=== PATIENT | female | born 1965 | race Caucasian/White ===

== ENCOUNTER 2017-07-21 14:28 | Emergency (ER) | payer MEDICAID ==
[~2017-07-21] VITALS: Ht 157.5 cm; Wt 59.8 kg
[~2017-07-21 14:28] MED LIST: GABA300C PO; HYDR-565 PO; SUCR1TAB PO
[2017-07-21 14:47] VITALS: BP 135/78
[2017-07-21] MEDS ORDERED: METH4TAB81 PO (15:41)
== END 2017-07-21 16:01 | disposition home or self-care (01) ==
LOC: ER 14:28
DX: G56.03 Carpal tunnel syndrome, bilateral upper limbs (principal); G89.29 Other chronic pain; M19.90 Unspecified osteoarthritis, unspecified site; Z88.8 Allergy status to other drugs, medicaments and biological substances; Z79.899 Other long term (current) drug therapy
CPT/HCPCS: 99283

== ENCOUNTER 2018-04-10 09:31 | Day surgery (SDC) | payer MEDICAID ==
[2018-04-03 10:42] LABS: BASOPHILS # (AUTO) 0.1 X10'3 (0-0.2); BASOPHILS % (AUTO) 1.3 % (0-1); EOSINOPHILS # (AUTO) 0.2 X10'3 (0-0.9); EOSINOPHILS % (AUTO) 3.3 % (0-6); LYMPHOCYTES # (AUTO) 2.6 X10'3 (1.1-4.8); LYMPHOCYTES % (AUTO) 36.3 % (21-51); MEAN CORPUSCULAR HEMOGLOBIN 30.8 PG (27.0-31.0); MEAN CORPUSCULAR HGB CONC 34.1 g/dL (33.0-36.5); MEAN CORPUSCULAR VOLUME 90.2 FL (78-98); MEAN PLATELET VOLUME 7.3 FL (7.4-10.4); MONOCYTES # (AUTO) 0.4 X10'3 (0-0.9); MONOCYTES % (AUTO) 5.6 % (2-12); NEUTROPHILS # (AUTO) 3.8 X10'3 (1.8-7.7); NEUTROPHILS % (AUTO) 53.5 % (42-75); PRE OP HEMATOCRIT 39.9 % (35.0-45.0); PRE OP HEMOGLOBIN 13.6 g/dL (12.0-16.0); PRE OP PLATELET COUNT 385 X10'3 (140-440); RED BLOOD COUNT 4.43 X10'6 (4.20-5.60); RED CELL DISTRIBUTION WIDTH 13.7 % (11.5-14.5)
[2018-04-03 10:57] LABS: ALBUMIN 3.7 G/DL (3.4-5.0); ALBUMIN/GLOBULIN RATIO 1.1 (1.1-1.5); ALKALINE PHOSPHATASE 127 IU/L (46-116); BLOOD UREA NITROGEN 16 MG/DL (7-18); BUN/CREATININE RATIO 19.8 (6.6-38.0); CALCIUM 9.3 MG/DL (8.5-10.1); CHLORIDE 104 MMOL/L (99-107); CREATININE 0.81 MG/DL (0.40-0.90); PRE OP ALT 48 U/L (30-65); PRE OP ANION GAP 8 (8-16); PRE OP AST 30 U/L (10-37); PRE OP BILIRUB, TOTAL 0.2 MG/DL (0.0-1.0); PRE OP GLUCOSE 91 MG/DL (70-104); PRE OP POTASSIUM 4.2 MMOL/L (3.4-5.1); PRE OP SODIUM 139 MMOL/L (135-145); TOTAL CARBON DIOXIDE 26.6 MMOL/L (24-32); TOTAL PROTEIN 7.2 G/DL (6.4-8.2); eGFR 74 ML/MIN
[~2018-04-10] VITALS: Ht 160 cm; Wt 66.9 kg
[~2018-04-10 09:31] MED LIST changes: +BUPIVAcaine/PF 2.5mg/ml (0.25%) 10ml vial ONE; -GABA300C PO; -HYDR-565 PO; +LIDOcaine 1% 30ml preserv. free vial ONE; +NO HOME MEDS; -SUCR1TAB PO; +ceFAZolin 1GM/D5W- ADD-VANTAGE 50 ML IV ONE; +famotidine 20mg tablet PO ONE; +ringers solution, lacted 1,000 ML IV SCH
[2018-04-10 11:02] VITALS: BP 148/81
[2018-04-10 11:03] VITALS: BP 148/81
[2018-04-10] MEDS ORDERED: ringers solution, lacted 1,000 ML IV SCH (11:09)
[2018-04-10] MEDS ORDERED: ondansetron/PF 4mg/2ml inj IV PRN (11:10)
[2018-04-10] MEDS ORDERED: proCHLORperazine 10 MG/2 ml inj IV PRN (11:10)
[2018-04-10] MEDS ORDERED: morphine 4 MG/ML inj SYRINge IV PRN ×2 (11:10)
[2018-04-10] MEDS ORDERED: meperidine/PF 25mg/ml syringe IV PRN ×3 (11:10)
[2018-04-10] MEDS ORDERED: BUPIVAcaine/PF 2.5mg/ml (0.25%) 10ml vial ONE ×2 (11:24→11:30)
[2018-04-10] MEDS ORDERED: MIDAZolam 5mg/5ml vial ONE (11:28)
[2018-04-10] MEDS ORDERED: ketorolac trometh. 30mg/ml inj. ONE (11:28)
[2018-04-10] MEDS ORDERED: fentaNYL/PF 50MCG/1 ML 2ML syringe ONE (11:28)
[2018-04-10 12:00] VITALS: BP 130/74
--- NOTE | 2018-04-10 12:00 | NUR ---
Received from OR via [facility], accompanied by Anesthesiologist DR. CAMACHO and report given by Anesthesiolgist. VSS ON RA. DRESSING CDI. EWING WITH GOOD CSM. PULSES AND FITTER/WELDER.
[2018-04-10 12:10] VITALS: BP 125/79
[2018-04-10 12:20] VITALS: BP 109/65
--- NOTE | 2018-04-10 12:29 | NUR ---
PT DC READY. INSTR READ TO PT, WRITTEN COPY TO PT. VSS ON RA. IV DCD. TO POV VIA WC FOR DC HOME
== END 2018-04-10 12:30 | disposition home or self-care (01) ==
LOC: PAS 09:31
PROVIDERS: ATTEND Orthopaedic Surgery Hand Surgery
DX: G56.03 Carpal tunnel syndrome, bilateral upper limbs (principal); K21.9 Gastro-esophageal reflux disease without esophagitis; F17.210 Nicotine dependence, cigarettes, uncomplicated; G43.909 Migraine, unspecified, not intractable, without status migrainosus; Z88.8 Allergy status to other drugs, medicaments and biological substances; Z98.890 Other specified postprocedural states
CPT/HCPCS: 36415; 64721; 80053; 82948; 85025; 93005; A6222; A6449; J0690; J1885; J2250; J3010; J3490; J7120

== ENCOUNTER 2018-09-01 07:44 | Day surgery (SDC) | payer MEDICAID ==
[2018-08-26 12:36] LABS: BASOPHILS # (AUTO) 0.1 X10'3 (0-0.2); BASOPHILS % (AUTO) 0.9 % (0-1); EOSINOPHILS % (AUTO) 0.3 % (0-6); LYMPHOCYTES % (AUTO) 39.9 % (21-51); MEAN CORPUSCULAR HEMOGLOBIN 30.5 PG (27.0-31.0); MEAN CORPUSCULAR HGB CONC 33.6 g/dL (33.0-36.5); MEAN CORPUSCULAR VOLUME 90.6 FL (78-98); MEAN PLATELET VOLUME 7.2 FL (7.4-10.4); MONOCYTES # (AUTO) 0.6 X10'3 (0-0.9); MONOCYTES % (AUTO) 7.5 % (2-12); NEUTROPHILS # (AUTO) 3.9 X10'3 (1.8-7.7); NEUTROPHILS % (AUTO) 51.4 % (42-75); PRE OP HEMATOCRIT 40.1 % (35.0-45.0); PRE OP HEMOGLOBIN 13.5 g/dL (12.0-16.0); PRE OP PLATELET COUNT 429 X10'3 (140-440); RED BLOOD COUNT 4.43 X10'6 (4.20-5.60)
[2018-08-26 12:48] LABS: ALBUMIN 3.6 G/DL (3.4-5.0); ALBUMIN/GLOBULIN RATIO 1.1 (1.1-1.5); ALKALINE PHOSPHATASE 118 IU/L (46-116); BLOOD UREA NITROGEN 16 MG/DL (7-18); BUN/CREATININE RATIO 20.3 (6.6-38.0); CALCIUM 9.5 MG/DL (8.5-10.1); CHLORIDE 106 MMOL/L (99-107); CREATININE 0.79 MG/DL (0.40-0.90); PRE OP ALT 28 U/L (30-65); PRE OP ANION GAP 3 (8-16); PRE OP AST 21 U/L (10-37); PRE OP BILIRUB, TOTAL 0.2 MG/DL (0.0-1.0); PRE OP GLUCOSE 101 MG/DL (70-104); PRE OP POTASSIUM 3.8 MMOL/L (3.4-5.1); PRE OP SODIUM 141 MMOL/L (135-145); TOTAL CARBON DIOXIDE 32.4 MMOL/L (24-32); TOTAL PROTEIN 6.9 G/DL (6.4-8.2); eGFR 76 ML/MIN
[~2018-09-01] VITALS: Ht 157.5 cm; Wt 68.0 kg
[2018-09-01] VITALS (7 sets, daily range): BP systolic 111–142; BP diastolic 71–91
[~2018-09-01 07:44] MED LIST changes: -BUPIVAcaine/PF 2.5mg/ml (0.25%) 10ml vial ONE; +HYDR-4353 PO; -LIDOcaine 1% 30ml preserv. free vial ONE; -NO HOME MEDS; -ceFAZolin 1GM/D5W- ADD-VANTAGE 50 ML IV ONE; -famotidine 20mg tablet PO ONE; -ringers solution, lacted 1,000 ML IV SCH
[2018-09-01] MEDS ORDERED: cefazolin/dext.iso 2gm/100 ML IV ONE (08:30)
[2018-09-01] MEDS ORDERED: famotidine 20mg tablet PO ONE (08:30)
[2018-09-01] MEDS ORDERED: ringers solution, lacted 1,000 ML IV SCH ×2 (08:30→11:22)
[2018-09-01] MEDS ORDERED: ROPIVAcaine 0.5% (5mg/ml) 30ml vial ONE (09:00)
[2018-09-01] MEDS ORDERED: BUPIVAcaine/PF 2.5mg/ml (0.25%) 10ml vial ONE (10:01)
[2018-09-01] MEDS ORDERED: fentaNYL/PF 50MCG/1 ML 2ML syringe ONE ×2 (10:39→11:49)
[2018-09-01] MEDS ORDERED: LIDOcaine 2% (20mg/ml) 5ml vial ONE (10:39)
[2018-09-01] MEDS ORDERED: propofol inj 20 ML IV ONE (10:39)
[2018-09-01] MEDS ORDERED: ondansetron/PF 4mg/2ml inj ONE (11:04)
[2018-09-01] MEDS ORDERED: fentaNYL/PF 50MCG/1 ML 2ML syringe IV PRN ×2 (11:25)
[2018-09-01] MEDS ORDERED: morphine 4 MG/ML inj SYRINge IV PRN ×2 (11:25)
[2018-09-01] MEDS ORDERED: labetalol 20mg/4ml (5mg/ml) syringe IV PRN (11:25)
[2018-09-01] MEDS ORDERED: ondansetron/PF 4mg/2ml inj IV PRN (11:25)
[2018-09-01] MEDS ORDERED: hydrALAZINE 20mg/ml inj. IV PRN (11:25)
--- NOTE | 2018-09-01 12:27 | NUR ---
Received from OR via , accompanied by Anesthesiologist DR DE LA CRUZ and report given by Anesthesiolgist. AWAKENS TO VOCIE. VITALS STABLE. DRESSING DI. BRAULIO PAIN. RUE IN SIMPLE SLING. FINGERS WARM AND PINK.
[2018-09-01] MEDS ORDERED: HYDROcodone/acetaminophen 10/325mg tab PO PRN (12:30)
--- NOTE | 2018-09-01 13:27 | NUR ---
AWAKE AND ORIENTED. VITALS STABLE. DRESSING DI. STATES MINIMAL DISCOMFORT. HOME WITH A FRIEND AT THIS TIME.
== END 2018-09-01 13:27 | disposition home or self-care (01) ==
LOC: PAS 07:44
PROVIDERS: ATTEND Orthopaedic Surgery
DX: S46.011A Strain of muscle(s) and tendon(s) of the rotator cuff of right shoulder, initial encounter (principal); M75.41 Impingement syndrome of right shoulder; M75.31 Calcific tendinitis of right shoulder; M19.012 Primary osteoarthritis, left shoulder; M19.011 Primary osteoarthritis, right shoulder; Y92.89 Other specified places as the place of occurrence of the external cause; G89.18 Other acute postprocedural pain; X58.XXXA Exposure to other specified factors, initial encounter; Y93.89 Activity, other specified; Y99.8 Other external cause status; Z79.899 Other long term (current) drug therapy
CPT/HCPCS: 29826; 29827; 36415; 64415; 76942; 80053; 82948; 85025; J2001; J2405; J2704; J3010; J3490; J7120; A4565; A4618; A6449; A7000; J2795

== ENCOUNTER 2019-02-26 18:08 | Emergency (ER) | payer MEDICAID ==
[~2019-02-26] VITALS: Ht 157.5 cm; Wt 62.1 kg
[2019-02-26 18:15] VITALS: BP 143/108
[2019-02-26] MEDS ORDERED: ketorolac tromethamine 15mg/ml inj. IM ONE (19:10)
== END 2019-02-26 20:21 | disposition home or self-care (01) ==
LOC: ER 18:10
DX: R07.89 Other chest pain (principal); R05 Cough; G89.29 Other chronic pain; M19.90 Unspecified osteoarthritis, unspecified site; Z88.8 Allergy status to other drugs, medicaments and biological substances; Z79.899 Other long term (current) drug therapy
CPT/HCPCS: 71045; 96372; 99283; J1885

== ENCOUNTER 2020-09-01 06:43 | Emergency (ER) | payer MEDICAID ==
[~2020-09-01] VITALS: Ht 157.5 cm; Wt 65.9 kg
[2020-09-01] MEDS ORDERED: ringers solution, lacted 1,000 ML IV ONE (07:35)
[2020-09-01] MEDS ORDERED: metoclopramide 5 mg/ml inj IV ONE (07:35)
[2020-09-01 07:38] LABS: BASOPHILS % (AUTO) 0.4 % (0-1); EOSINOPHILS % (AUTO) 0.3 % (0-6); HEMATOCRIT 34.9 % (35.0-45.0); HEMOGLOBIN 11.8 g/dl (12.0-16.0); LYMPHOCYTES # (AUTO) 1.3 X10'3 (1.1-4.8); LYMPHOCYTES % (AUTO) 14.2 % (21-51); MEAN CORPUSCULAR HEMOGLOBIN 30.1 PG (27.0-31.0); MEAN CORPUSCULAR HGB CONC 33.9 g/dL (33.0-36.5); MEAN CORPUSCULAR VOLUME 88.9 FL (78-98); MEAN PLATELET VOLUME 7.9 FL (7.4-10.4); MONOCYTES # (AUTO) 0.5 X10'3 (0-0.9); MONOCYTES % (AUTO) 5.6 % (2-12); NEUTROPHILS # (AUTO) 7.1 X10'3 (1.8-7.7); NEUTROPHILS % (AUTO) 79.5 % (42-75); PLATELET COUNT 305 X10'3 (140-440); RED BLOOD COUNT 3.92 X10'6 (4.20-5.60); RED CELL DISTRIBUTION WIDTH 13.6 % (11.5-14.5)
[2020-09-01 08:02] LABS: ALANINE AMINOTRANSFERASE 83 U/L (12-78); ALBUMIN 2.9 G/DL (3.4-5.0); ALBUMIN/GLOBULIN RATIO 0.8 (1.1-1.5); ALKALINE PHOSPHATASE 149 IU/L (46-116); ASPARTATE AMINO TRANSFERASE 67 U/L (10-37); BILIRUBIN,TOTAL 0.5 MG/DL (0.1-1.0); BLOOD UREA NITROGEN 9 MG/DL (7-18); BUN/CREATININE RATIO 11.7 (6.6-38.0); CALCIUM 8.4 MG/DL (8.5-10.1); CHLORIDE 103 MMOL/L (99-107); CREATININE 0.77 MG/DL (0.40-0.90); GLUCOSE 102 MG/DL (70-104); LIPASE 86 U/L (73-393); POTASSIUM 3.3 MMOL/L (3.5-5.1); TOTAL CARBON DIOXIDE 28.9 MMOL/L (24-32); TOTAL PROTEIN 6.6 G/DL (6.4-8.2); eGFR 78 ML/MIN
[2020-09-01 08:05] LABS: SODIUM 140 MMOL/L (135-145)
[2020-09-01 08:11] LABS: ANION GAP 8 (8-16)
[2020-09-01] MEDS ORDERED: iohexol 300mg/ml 100ml inj. ONE (08:18)
[2020-09-01 08:31] LABS: URINE HCG NEGATIVE (NEG)
[2020-09-01 08:34] LABS: CLARITY,URINE CLOUDY (Clear); COLOR,URINE YELLOW (Yellow); GLUCOSE, URINE NEGATIVE (Neg); KETONES,URINE NEGATIVE (Neg); LEUKOCYTE ESTERASE ,URINE LARGE (Neg); NITRITES, URINE NEGATIVE (Neg); OCCULT BLOOD,URINE SMALL (Neg); PH,URINE 8.5 (4.8-8.0); PROTEIN,URINE 100 mg/dl (Neg)
[2020-09-01 08:36] LABS: UA COLLECTION TYPE NON-SPECIFIED
[2020-09-01 08:47] LABS: BACTERIA,URINE 2+ /HPF (Neg); MUCUS STRANDS NONE SEEN /LPF (Neg); SQUAMOUS EPITHELIAL CELL,UR FEW /LPF (FEW); WBC CLUMPS,URINE MANY /HPF (NEGATIVE); WBC,URINE TNTC /HPF (0-4)
[2020-09-01 11:01] VITALS: BP 112/72
[2020-09-01] MEDS ORDERED: CEPH500C2 PO (11:34)
--- NOTE | 2020-09-01 11:40 | NUR ---
PT HAS BEEN NOTED NOT TO BE IN HER ROOM; BELONGINGS ARE GONE AND GOWN IS ON THE GURNEY. PROVIDER NOTIFIED. PT WAS CALLED AND REQUESTED THAT SHE CALL BACK AND RETURN TO ER FOR REMAINDER OF HER TREATEMENT
[2020-09-02] MEDS ORDERED: CefTRIAXone 2gm/D5W 50ml BAG 50 ML IV SCH (08:00)
== END 2020-09-01 11:53 | disposition left against medical advice (07) ==
LOC: ER 06:44
DX: N39.0 Urinary tract infection, site not specified (principal); R11.2 Nausea with vomiting, unspecified; R10.9 Unspecified abdominal pain; G89.29 Other chronic pain; M19.90 Unspecified osteoarthritis, unspecified site; Z88.8 Allergy status to other drugs, medicaments and biological substances; Z79.899 Other long term (current) drug therapy
CPT/HCPCS: 36415; 74177; 80053; 81001; 81025; 83690; 85025; 87077; 87088; 87186; 96361; 96374; 99285; J2765; Q9967; J7120

== ENCOUNTER 2022-10-04 17:17 | Emergency (ER) | payer MEDICAID ==
[~2022-10-04] VITALS: Ht 157.5 cm; Wt 65.6 kg
[2022-10-04 18:01] VITALS: BP 129/82; PULSE 81; RESP 16; O2SAT 98
== END 2022-10-04 21:36 | disposition left against medical advice (07) ==
LOC: ER 17:18
DX: H66.42 Suppurative otitis media, unspecified, left ear (principal); Z53.21 Procedure and treatment not carried out due to patient leaving prior to being seen by health care provider
CPT/HCPCS: 99281